=== PATIENT | female | born 1945 | race Caucasian/White ===

== ENCOUNTER 2017-08-24 10:28 | Emergency (ER) | payer MEDICARE, MEDICAID ==
[2017-08-24 10:48] VITALS: TEMP 98.2
[2017-08-24 12:29] LABS: BASO % 0.7 % (0.0-2.0); EOS # 0.2 K/uL (0.0-0.7); EOS % 2.7 % (0.0-4.0); HEMOGLOBIN 10.5 g/dL (11.0-16.0); LYMPH # 1.2 K/uL (1.0-4.3); LYMPH % 17.6 % (20.0-40.0); MEAN CELL VOLUME 81.9 fL (81.0-99.0); MEAN CORPUSCULAR HEMOGLOBIN 26.7 pg (27.0-31.0); MEAN CORPUSCULAR HGB CONC 32.6 g/dL (33.0-37.0); MEAN PLATELET VOLUME 8.7 fL (7.2-11.7); MONO # 0.5 K/uL (0.0-0.8); MONO % 7.2 % (0.0-10.0); NEUT # 5.1 K/uL (1.8-7.0); NEUT % 71.8 % (50.0-75.0); RBC 3.93 Mil/uL (3.80-5.20); RED CELL DISTRIBUTION WIDTH 13.9 % (11.5-14.5)
[2017-08-24 12:36] LABS: INR 1.1; PROTHROMBIN TIME 12.6 SECONDS (9.7-12.2)
[2017-08-24] MEDS ORDERED: Aspirin 325 mg EC Tablets PO STA (12:46)
[2017-08-24 12:49] LABS: ALB/GLOB RATIO 1.1 (1.0-2.1); ALBUMIN 3.8 g/dL (3.5-5.0); ALT/SGPT 13 U/L (9-52); AST/SGOT 30 U/L (14-36); BLOOD UREA NITROGEN 21 mg/dL (7-17); CALCIUM 10.6 mg/dl (8.6-10.4); GFR AFRICAN-AMERICAN 59; GFR NON-AFRICAN AMERICAN 49
--- NOTE | 2017-08-24 12:52 | C.PDOC ---
History Of Present Illness 71 y/o female, w/PMhx of breast cancer, brought to ER by ambulance complaining of chest pain and SOB which began last night. Patient states that she went to adult daycare today and they sent her to the ER. Patient reports that she finished chemotherapy with Dr. Giraldo in May 2017. Currently, patient denies having fever, chills, SOB, nausea and vomiting. Time Seen by Provider: 08/24/17 12:22 Chief Complaint (Nursing): Chest Pain History Per: Patient, Family History/Exam Limitations: no limitations Onset/Duration Of Symptoms: Days Current Symptoms Are (Timing): Still Present Severity: Moderate Past Medical History Reviewed: Historical Data, Nursing Documentation, Vital Signs Vital Signs: Last Vital Signs Temp 98.2 F 08/24/17 10:28 Pulse 91 H 08/24/17 15:53 Resp 15 08/24/17 15:53 BP 139/75 08/24/17 15:53 Pulse Ox 97 08/24/17 15:53 - Medical History PMH: HTN, Hypothyroidism, Sleep Apnea Other Surgeries: Hx of surgeries - Social History Hx Alcohol Use: No Hx Substance Use: No - Immunization History Hx Tetanus Toxoid Vaccination: No Hx Influenza Vaccination: Yes Hx Pneumococcal Vaccination: No Physical Exam - Physical Exam Appears: No Acute Distress Skin: Normal Color, Warm, Dry Head: Atraumatic, Normacephalic Eye(s): bilateral: Normal Inspection Nose: Normal Oral Mucosa: Moist Neck: Supple Chest: Symmetrical Cardiovascular: Rhythm Regular Respiratory: Normal Breath Sounds, No Rales, No Rhonchi, No Wheezing Gastrointestinal/Abdominal: Normal Exam, Soft, No Tenderness Extremity: No Tenderness, No Pedal Edema, No Swelling Neurological/Psych: Oriented x3, Normal Speech ED Course And Treatment - Laboratory Results Result Diagrams: 08/24/17 12:25 08/24/17 12:25 O2 Sat by Pulse Oximetry: 100 (RA) Pulse Ox Interpretation: Normal - Radiology CXR: Interpreted by Me, Viewed By Me CXR Interpretation: Yes: No Acute Disease Medical Decision Making Medical Decision Making: Plan: --Labs --EKG --CXR --Aspirin PO --Motrin PO asymptomatic Disposition - Disposition Referrals: Mitch Giraldo MD [Staff Provider] - Disposition: HOME/ ROUTINE Disposition Time: 15:44 Condition: STABLE Additional Instructions: Follow up with your doctor. Return to the Emergency Department with any further complaints. Instructions: Chest Pain Forms: [facility] (Togolese), General Discharge Instructions - Clinical Impression Clinical Impression: Chest pain - Scribe Statement The provider has reviewed the documentation as recorded by the Rosanaibe Lionel Bedolla Provider Attestation: All medical record entries made by the Rosanaibe were at my direction and personally dictated by me. I have reviewed the chart and agree that the record accurately reflects my personal performance of the history, physical exam, medical decision making, and the department course for this patient. I have also personally directed, reviewed, and agree with the discharge instructions and disposition.
[2017-08-24 13:01] LABS: CK-MB 0.88 ng/mL (0.0-3.38)
[2017-08-24 13:40] LABS: B-TYPE NATRIURETIC PEPTIDE 129 pg/mL (0-900)
--- NOTE | 2017-08-24 14:52 | RAD ---
PROCEDURE: CHEST RADIOGRAPH, 1 VIEW HISTORY: SOB COMPARISON: Move FINDINGS: LUNGS: Clear. PLEURA: No pneumothorax or pleural fluid seen. CARDIOVASCULAR: No radiographic findings to suggest acute or significant cardiovascular disease. OSSEOUS STRUCTURES: No significant abnormalities. VISUALIZED UPPER ABDOMEN: Normal. OTHER FINDINGS: None. IMPRESSION: No active disease.
[2017-08-24] MEDS ORDERED: Potassium Chloride 20 mEq/15 ml LIQ UD PO STA (15:43)
[2017-08-24] MEDS ORDERED: Potassium Chloride 20 mEq/15 ml LIQ UD ONE (15:48)
[2017-08-24 15:54] VITALS: BP 139/75; PULSE 91; RESP 15
[2017-08-24 18:47] VITALS: O2SAT 100
--- NOTE | 2017-08-26 12:06 | CARD ---
APPROVED REPORT EKG Measurement Heart [id number] CO [id number] <Conclusion> Sinus tachycardia Right bundle branch block Abnormal ECG
== END 2017-08-24 15:54 | disposition home or self-care (01) ==
LOC: C.ER 10:28
DX: R07.9 Chest pain, unspecified (principal); I10 Essential (primary) hypertension

== ENCOUNTER 2018-02-25 07:04 | Day surgery (SDC) | payer MEDICARE, MEDICAID ==
[2018-02-25] MEDS ORDERED: Lactated Ringer's 500 ML IV SCH (08:30)
[2018-02-25] MEDS ORDERED: Albuterol HFA 90 mcg/actuation (8 g) ONE (08:37)
[2018-02-25] MEDS ORDERED: Etomidate 20 mg/10ml Inj IV ONE (08:37)
--- NOTE | 2018-02-25 08:45 | CP.SDSHP ---
Same Day Surgery H & P - History Proposed Procedure: colonoscopy - Previous Medical/Surgical History Cardiac: Hypertension Endocrine/Metabolic: Diabetes Previous Surgical History: left mastectomy hysterectomy cholecystectomy T&A col onoscopy - Allergies Allergies: Allergies No Known Allergies Allergy (Verified 02/24/18 09:44) - Physical Exam Vital Signs: Vital Signs 02/25/18 07:15 Temperature 97 F L Pulse Rate 80 Respiratory 20 Rate Blood Pressure 152/98 H O2 Sat by Pulse 97 Oximetry - Date & Time Date: 02/25/18 Time: 08:27 Short Stay Discharge - Short Stay Discharge Admitting Diagnosis/Reason for Visit: SCREENING Disposition: HOME/ ROUTINE
[2018-02-25] MEDS ORDERED: Propofol 10 mg/ml Inj (20 ML) ONE (08:50)
[2018-02-25 09:21] VITALS: TEMP 97.3
[2018-02-25 10:28] VITALS: O2SAT 100
[2018-02-25 10:33] VITALS: BP 138/83; PULSE 83; RESP 11
== END 2018-02-25 10:10 | disposition home or self-care (01) ==
LOC: C.ENDO 07:04
PROVIDERS: ATTEND Colon & Rectal Surgery
DX: Z12.11 Encounter for screening for malignant neoplasm of colon (principal); D12.3 Benign neoplasm of transverse colon; K57.30 Diverticulosis of large intestine without perforation or abscess without bleeding; K64.8 Other hemorrhoids
CPT/HCPCS: 45380; 82948; 88305; J2704; J7120